=== PATIENT | female | born 1930 | race Caucasian/White ===

== ENCOUNTER 2016-06-15 07:57 | Inpatient (IN) | payer OTHER ==
[~2016-06-15] VITALS: Ht 157.4 cm; Wt 46.9 kg
--- NOTE | ~2016-06-15 | EKG ---
[place], [place] ELECTROCARDIOGRAM REPORT NAME: KRYS GODINEZ UNIT #: [id number] ROOM: 505 DOCTOR: JOSE E LOONEY MD BIRTHDATE: [birth year] DOS: 06/15/2016 TIME: 08:50. FINDINGS: 1. Sinus rhythm with normal axis and normal R wave progression. 2. Normal electrocardiogram. JOSE E LOONEY MD CM:EKGRPT:ELECTROCARDIOGRAM REPORT [id number] JOSE E LOONEY MD
--- NOTE | ~2016-06-15 | PR ---
[place], [place] PROGRESS NOTE NAME: KRYS GODINEZ UNIT #: [id number] ROOM: 505 DOCTOR: NEETA POWERS MD BIRTHDATE: [birth year] DOS: 06/19/2016 GASTROENDOSCOPIC REPORT HISTORY OF PRESENT ILLNESS: An 85-year-old patient who has presented with parotitis and under investigation right now. The patient has had some inflammatory response around the upper esophagus as well. However, this is going to be addressed as an outpatient in future. Her white blood cells today is 3.3, H and H of 10 and 31. Differential within normal limits. Flu negative A and B. Vancomycin trough has been 3.3, low level. She is getting multi antibiotic. Electrolytes were balanced. Liver function tests normal. Latest CBC: White blood cell has developed, dropped to 2.3 and platelet 100. PAST MEDICAL HISTORY: Reassessed. Past medical history per consultation report. REVIEW OF SYSTEMS: In general, HEENT: Denies double vision, blurred vision. RESPIRATORY: Denies acute shortness of breath. CARDIOVASCULAR: Denies chest pain. DIGESTIVE SYSTEM: Some dysphagia. PHYSICAL EXAMINATION: VITAL SIGNS: Stable. HEENT: Head normocephalic, nontraumatic. Mouth and buccal mucosa benign. Throat is free of thrush. I do not see any gross lymphadenopathy. I do not see any growth around the uvula. Parotid looks and appears to be soft on palpation. NECK: Supple, no thyromegaly, no cervical lymphadenopathy. CHEST: Symmetric anatomy, equal expansion. No wheeze, no rhonchi. HEART: Normal sinus rhythm. No gallop, no murmur. ABDOMEN: Soft. No hepato-organomegaly. Bowel sounds present. No pulsatile mass. EXTREMITIES: No cyanosis, no pedal edema. NEUROLOGIC: Alert and oriented to time, place and person. IMPRESSION: Parotitis, at the present and reactive inflammatory response around the cervical esophagus. PLAN AND DISCUSSION: Continuation with an antibiotic and follow up as outpatient. Thank you again. Sincerely yours, [place], [place] PROGRESS NOTE NAME: KRYS GODINEZ UNIT #: [id number] ROOM: 505 DOCTOR: NEETA POWERS MD BIRTHDATE: [birth year] NEETA POWERS MD CM:PNTRANS 142 2 NEETA POWERS MD 06/20/16402 interface
--- NOTE | ~2016-06-15 | CON ---
[place], [place] REPORT OF CONSULTATION NAME: KRYS GODINEZ UNIT #: [id number] ROOM: 505 DOCTOR: TASHI RESENDIZ MD BIRTHDATE: [birth year] DOS: 06/19/2016 ATTENDING PHYSICIAN: Sonya Hoang DO REASON FOR CONSULTATION: Right ear pain and right infraauricular swelling. HISTORY OF PRESENT ILLNESS: The patient is an 85-year-old female admitted to [facility] several days ago, the patient had symptoms of weakness and disequilibrium. She was admitted with a principal diagnosis of generalized weakness with dehydration and leukopenia. Symptoms are attributed to a viral illness. She did have right-sided ear pain and infraauricular swelling, prompting an ENT consultation. PAST MEDICAL HISTORY: Negative. PAST SURGICAL HISTORY: Total hip replacement. SOCIAL HISTORY: The patient denies use of alcohol, illicit drugs, or cigarette smoking. LABORATORY STUDIES: Shows leukopenia with a white blood cell count of 2.3, hemoglobin of 11.2. The patient did have some imaging of the soft tissues of the neck, which demonstrated no evidence of abscess in the right facial tissues. PHYSICAL EXAMINATION: HEENT: The ear shows the external canals clear. The TMs are intact. No evidence of otitis media. The patient has tenderness on palpation over the right parotid region. Left parotid clear. Oral cavity and oropharynx shows dry mucosa. NECK: Shows no adenopathy. IMPRESSION: Mild right parotitis secondary to dehydration. RECOMMENDATIONS: No need for surgical intervention. The CT demonstrates no evidence of abscess. The patient most likely has mild right-sided parotitis secondary to dehydration, which should respond to hydration and the IV antibiotics currently being administered to this patient. TASHI RESENDIZ MD CM:CONSTR:REPORT OF CONSULTATION 1250 06/19/16 1319 interface
[2016-06-15 08:08] VITALS: BP 152/62
[2016-06-15 08:44] LABS: BASO # 0.1 10*3/uL (0.0-0.1); BASO % 1.2 % (0.0-1.0); EOS % 0.7 % (1.0-4.0); HEMATOCRIT 34.8 % (37.0-47.0); LYMPH # 0.4 10*3/uL (1.3-4.4); LYMPH % 8.9 % (27.0-41.0); MEAN CELL VOLUME 92.1 fl (81.0-99.0); MEAN CORPUSCULAR HGB 31.7 pg (27.0-31.0); MEAN CORPUSCULAR HGB CONC 34.5 g/dl (33.0-37.0); MEAN PLATELET VOLUME 10.6 fl (9.6-12.3); MONO # 0.9 10*3/uL (0.1-1.0); NEUT # 2.9 10*3/uL (2.3-7.9); NEUT % 69.2 % (47.0-73.0); PLATELET COUNT AUTOMATED 128 10*3/uL (130-400); RED BLOOD COUNT 3.78 10*6/uL (4.10-5.10); RED CELL DISTRI WIDTH 12.8 % (0-14.5); WHITE BLOOD COUNT 4.3 10*3/uL (4.8-10.8)
[2016-06-15 09:01] LABS: BUN 10 mg/dl (7-24); CARBON DIOXIDE 27 mmol/L (21-32); CHLORIDE 100 mmol/L (98-107); EST GLOM FILT AFRICAN AMERICAN > 60 ml/min; GLUCOSE 101 mg/dL (65-99); POTASSIUM 3.8 mmol/L (3.5-5.1); SODIUM 136 mmol/L (136-145)
[2016-06-15 09:09] LABS: TROPONIN I < 0.015 ng/ml (<0.045)
[2016-06-15 10:03] LABS: BILIRUBIN NEGATIVE (NEGATIVE); BLOOD TRACE-LYSED (NEGATIVE); CLARITY CLEAR (CLEAR); COLOR YELLOW (YELLOW); GLUCOSE NEGATIVE (NEGATIVE); KETONE NEGATIVE (NEGATIVE); LEUKO ESTERASE NEGATIVE (NEGATIVE); NITRITE NEGATIVE (NEGATIVE); PH 7.5 (5.0-9.0); PROTEIN NEGATIVE (NEGATIVE); SPECIFIC GRAVITY <= 1.005 (1.005-1.030); UROBILINOGEN 0.2 E.U./dl (0.2-1.0)
[2016-06-15 10:13] LABS: BACTERIA TRACE; EPITHELIAL CELLS 0-2; URINE REFLEX COMMENT NO (NO); WBC 0-2 wbc/hpf (0-5)
[2016-06-15 11:55] VITALS: BP 170/66
[2016-06-15 16:00] VITALS: BP 153/68
[2016-06-15 20:00] VITALS: BP 148/52
[2016-06-16] VITALS: BP 139/80
[2016-06-16 06:28] LABS: BASO # 0.1 10*3/uL (0.0-0.1); BASO % 0.9 % (0.0-1.0); EOS % 0.2 % (1.0-4.0); HEMATOCRIT 38.8 % (37.0-47.0); HEMOGLOBIN 12.7 g/dl (12.0-16.0); LYMPH % 19.2 % (27.0-41.0); MEAN CELL VOLUME 94.4 fl (81.0-99.0); MEAN CORPUSCULAR HGB 30.9 pg (27.0-31.0); MEAN CORPUSCULAR HGB CONC 32.7 g/dl (33.0-37.0); MEAN PLATELET VOLUME 11.3 fl (9.6-12.3); MONO # 0.7 10*3/uL (0.1-1.0); MONO % 12.2 % (3.0-9.0); NEUT # 3.7 10*3/uL (2.3-7.9); NEUT % 67.1 % (47.0-73.0); PLATELET COUNT AUTOMATED 126 10*3/uL (130-400); RED BLOOD COUNT 4.11 10*6/uL (4.10-5.10); RED CELL DISTRI WIDTH 12.9 % (0-14.5); WHITE BLOOD COUNT 5.4 10*3/uL (4.8-10.8)
[2016-06-16 06:46] LABS: HEMOGLOBIN A1c 5.7 % (4.8-5.6)
[2016-06-16 06:58] LABS: PROTHROMBIN TIME 10.8 SECONDS (9.0-12.4)
[2016-06-16 07:00] LABS: ALBUMIN 3.4 gm/dl (3.1-4.5); ALKALINE PHOSPHATASE 79 U/L (45-117); BILIRUBIN, TOTAL 0.3 mg/dl (0.2-1.0); BUN 10 mg/dl (7-24); CARBON DIOXIDE 27 mmol/L (21-32); CHLORIDE 102 mmol/L (98-107); CHOLESTEROL 164 mg/dL (<200); EST GLOM FILT AFRICAN AMERICAN > 60 ml/min; GLUCOSE 89 mg/dL (65-99); HDL CHOLESTEROL 82 mg/dl (40-60); LDL CHOLESTEROL 74 mg/dL (9-159); MAGNESIUM 2.2 mg/dL (1.5-2.1); PHOSPHOROUS 3.3 mg/dL (2.5-4.9); POTASSIUM 3.7 mmol/L (3.5-5.1); SGOT/AST 31 IU/L (3-35); SGPT/ALT 20 U/L (12-78); SODIUM 138 mmol/L (136-145); TOTAL PROTEIN 7.2 gm/dL (6.4-8.2); TRIGLYCERIDES 41 mg/dl (<150); VLDL CHOLESTEROL 8 mg/dL (6-40)
[2016-06-16 07:36] LABS: FOLIC ACID 15.14 ng/mL (>5.38); VITAMIN D, 25-HYDROXY 30.3 ng/mL (30-100)
[2016-06-16 08:00] VITALS: BP 150/52
[2016-06-16 12:00] VITALS: BP 133/43
[2016-06-16 12:30] VITALS: BP 131/48
[2016-06-16 16:00] VITALS: BP 119/57
[2016-06-16 20:00] VITALS: BP 119/51
[2016-06-17] VITALS: BP 130/46
[2016-06-17 07:00] LABS: BASO % 0.5 % (0.0-1.0); EOS # 0.1 10*3/uL (0.0-0.4); EOS % 1.2 % (1.0-4.0); HEMATOCRIT 34.9 % (37.0-47.0); HEMOGLOBIN 11.2 g/dl (12.0-16.0); LYMPH # 1.1 10*3/uL (1.3-4.4); LYMPH % 26.2 % (27.0-41.0); MEAN CELL VOLUME 95.1 fl (81.0-99.0); MEAN CORPUSCULAR HGB 30.5 pg (27.0-31.0); MEAN CORPUSCULAR HGB CONC 32.1 g/dl (33.0-37.0); MEAN PLATELET VOLUME 11.2 fl (9.6-12.3); MONO # 0.4 10*3/uL (0.1-1.0); MONO % 10.5 % (3.0-9.0); NEUT # 2.5 10*3/uL (2.3-7.9); NEUT % 61.4 % (47.0-73.0); PLATELET COUNT AUTOMATED 101 10*3/uL (130-400); RED BLOOD COUNT 3.67 10*6/uL (4.10-5.10); RED CELL DISTRI WIDTH 13.1 % (0-14.5); WHITE BLOOD COUNT 4.1 10*3/uL (4.8-10.8)
[2016-06-17 07:34] LABS: BUN 10 mg/dl (7-24); CARBON DIOXIDE 29 mmol/L (21-32); CHLORIDE 105 mmol/L (98-107); EST GLOM FILT AFRICAN AMERICAN > 60 ml/min; GLUCOSE 84 mg/dL (65-99); POTASSIUM 3.4 mmol/L (3.5-5.1); SODIUM 139 mmol/L (136-145)
[2016-06-17 08:00] VITALS: BP 158/56
[2016-06-17 12:00] VITALS: BP 150/75; BP 158/56
[2016-06-17 15:46] VITALS: BP 159/59
[2016-06-17 20:00] VITALS: BP 140/62
[2016-06-18] VITALS: BP 158/76
[2016-06-18 08:11] VITALS: BP 170/72
[2016-06-18 12:17] VITALS: BP 163/57
[2016-06-18 12:33] LABS: BASO % 0.3 % (0.0-1.0); EOS % 1.2 % (1.0-4.0); HEMATOCRIT 31.7 % (37.0-47.0); HEMOGLOBIN 10.6 g/dl (12.0-16.0); LYMPH # 0.6 10*3/uL (1.3-4.4); LYMPH % 17.8 % (27.0-41.0); MEAN CELL VOLUME 93.2 fl (81.0-99.0); MEAN CORPUSCULAR HGB 31.2 pg (27.0-31.0); MEAN CORPUSCULAR HGB CONC 33.4 g/dl (33.0-37.0); MEAN PLATELET VOLUME 10.9 fl (9.6-12.3); MONO # 0.4 10*3/uL (0.1-1.0); MONO % 11.2 % (3.0-9.0); NEUT # 2.3 10*3/uL (2.3-7.9); NEUT % 69.2 % (47.0-73.0); PLATELET COUNT AUTOMATED 100 10*3/uL (130-400); WHITE BLOOD COUNT 3.3 10*3/uL (4.8-10.8)
[2016-06-18 12:55] LABS: BUN 6 mg/dl (7-24); CARBON DIOXIDE 27 mmol/L (21-32); CHLORIDE 103 mmol/L (98-107); EST GLOM FILT AFRICAN AMERICAN > 60 ml/min; GLUCOSE 93 mg/dL (65-99); POTASSIUM 3.5 mmol/L (3.5-5.1); SODIUM 138 mmol/L (136-145)
[2016-06-18 16:00] VITALS: BP 137/63
[2016-06-18 20:00] VITALS: BP 153/56
[2016-06-19] VITALS: BP 146/53
[2016-06-19 07:40] LABS: HEMATOCRIT 33.8 % (37.0-47.0); HEMOGLOBIN 11.2 g/dl (12.0-16.0); MEAN CELL VOLUME 93.9 fl (81.0-99.0); MEAN CORPUSCULAR HGB 31.1 pg (27.0-31.0); MEAN CORPUSCULAR HGB CONC 33.1 g/dl (33.0-37.0); MEAN PLATELET VOLUME 10.9 fl (9.6-12.3); PLATELET COUNT AUTOMATED 100 10*3/uL (130-400); RED CELL DISTRI WIDTH 13.1 % (0-14.5); WHITE BLOOD COUNT 2.3 10*3/uL (4.8-10.8)
[2016-06-19 07:57] LABS: ALBUMIN 2.7 gm/dl (3.1-4.5); ALKALINE PHOSPHATASE 58 U/L (45-117); BILIRUBIN, TOTAL 0.3 mg/dl (0.2-1.0); BUN 6 mg/dl (7-24); CARBON DIOXIDE 27 mmol/L (21-32); CHLORIDE 106 mmol/L (98-107); EST GLOM FILT AFRICAN AMERICAN > 60 ml/min; GLUCOSE 86 mg/dL (65-99); POTASSIUM 3.6 mmol/L (3.5-5.1); SGOT/AST 28 IU/L (3-35); SGPT/ALT 15 U/L (12-78); SODIUM 142 mmol/L (136-145); TOTAL PROTEIN 6.1 gm/dL (6.4-8.2)
[2016-06-19 08:00] VITALS: BP 156/64
[2016-06-19 08:07] LABS: BASOPHILS 1 % (0-1); EOSINOPHIL # 0.1 10*3/uL (0-0.4); EOSINOPHILS 6 % (1-4); LYMPHOCYTE # 1.1 10*3/uL (1.3-4.4); MONOCYTE # 0.4 10*3/uL (0.1-1.0); NEUTROPHIL # 0.7 10*3/uL (2.3-7.9); NEUTROPHILS 29 % (47-73); PLATELET SUFFICIENCY LOW (NORMAL); TOTAL CELLS COUNTED 100 #CELLS
[2016-06-19 12:00] VITALS: BP 157/58
[2016-06-19 16:00] VITALS: BP 104/80; BP 155/57
[2016-06-19 20:00] VITALS: BP 154/57
[2016-06-20] VITALS: BP 160/56
[2016-06-20 07:33] LABS: HEMATOCRIT 33.5 % (37.0-47.0); HEMOGLOBIN 11.2 g/dl (12.0-16.0); MEAN CELL VOLUME 93.1 fl (81.0-99.0); MEAN CORPUSCULAR HGB 31.1 pg (27.0-31.0); MEAN CORPUSCULAR HGB CONC 33.4 g/dl (33.0-37.0); PLATELET COUNT AUTOMATED 107 10*3/uL (130-400); RED CELL DISTRI WIDTH 12.7 % (0-14.5); WHITE BLOOD COUNT 2.6 10*3/uL (4.8-10.8)
[2016-06-20 08:00] VITALS: BP 172/58
[2016-06-20 08:01] LABS: ALBUMIN 2.5 gm/dl (3.1-4.5); ALKALINE PHOSPHATASE 61 U/L (45-117); BILIRUBIN, TOTAL 0.4 mg/dl (0.2-1.0); BUN 6 mg/dl (7-24); CARBON DIOXIDE 27 mmol/L (21-32); CHLORIDE 107 mmol/L (98-107); EST GLOM FILT AFRICAN AMERICAN > 60 ml/min; GLUCOSE 90 mg/dL (65-99); POTASSIUM 3.6 mmol/L (3.5-5.1); SGOT/AST 21 IU/L (3-35); SGPT/ALT 14 U/L (12-78); SODIUM 143 mmol/L (136-145); TOTAL PROTEIN 5.9 gm/dL (6.4-8.2)
[2016-06-20 08:30] LABS: BASOPHILS 1 % (0-1); EOSINOPHIL # 0.1 10*3/uL (0-0.4); EOSINOPHILS 4 % (1-4); MONOCYTE # 0.4 10*3/uL (0.1-1.0); NEUTROPHILS 40 % (47-73); TOTAL CELLS COUNTED 100 #CELLS
[2016-06-20 08:31] LABS: PLATELET SUFFICIENCY LOW (NORMAL)
[2016-06-20 12:00] VITALS: BP 157/57
[2016-06-20 16:00] VITALS: BP 160/63
[2016-06-20 20:00] VITALS: BP 132/61
[2016-06-21] VITALS: BP 183/65
[2016-06-21 06:28] LABS: HEMATOCRIT 33.1 % (37.0-47.0); HEMOGLOBIN 10.9 g/dl (12.0-16.0); MEAN CORPUSCULAR HGB CONC 32.9 g/dl (33.0-37.0); MEAN PLATELET VOLUME 10.3 fl (9.6-12.3); PLATELET COUNT AUTOMATED 129 10*3/uL (130-400); RED BLOOD COUNT 3.52 10*6/uL (4.10-5.10); RED CELL DISTRI WIDTH 12.9 % (0-14.5); WHITE BLOOD COUNT 2.1 10*3/uL (4.8-10.8)
[2016-06-21 06:58] LABS: EOSINOPHILS 2 % (1-4); LYMPHOCYTE # 1.1 10*3/uL (1.3-4.4); MONOCYTE # 0.3 10*3/uL (0.1-1.0); NEUTROPHIL # 0.6 10*3/uL (2.3-7.9); NEUTROPHILS 28 % (47-73); PLATELET SUFFICIENCY LOW (NORMAL); TOTAL CELLS COUNTED 100 #CELLS
[2016-06-21 07:06] LABS: ALBUMIN 2.5 gm/dl (3.1-4.5); ALKALINE PHOSPHATASE 57 U/L (45-117); BILIRUBIN, TOTAL 0.3 mg/dl (0.2-1.0); BUN 5 mg/dl (7-24); CARBON DIOXIDE 30 mmol/L (21-32); CHLORIDE 107 mmol/L (98-107); EST GLOM FILT AFRICAN AMERICAN > 60 ml/min; GLUCOSE 89 mg/dL (65-99); POTASSIUM 3.5 mmol/L (3.5-5.1); SGOT/AST 19 IU/L (3-35); SGPT/ALT 16 U/L (12-78); SODIUM 143 mmol/L (136-145); TOTAL PROTEIN 5.8 gm/dL (6.4-8.2)
[2016-06-21 08:00] VITALS: BP 160/56
[2016-06-21 12:00] VITALS: BP 164/78
[2016-06-21 16:00] VITALS: BP 160/57
[2016-06-21 20:00] VITALS: BP 110/76
[2016-06-22] VITALS: BP 171/81
[2016-06-22 01:35] VITALS: BP 200/100
[2016-06-22 04:00] VITALS: BP 146/68
[2016-06-22 06:19] LABS: HEMATOCRIT 33.7 % (37.0-47.0); HEMOGLOBIN 11.4 g/dl (12.0-16.0); MEAN CELL VOLUME 92.3 fl (81.0-99.0); MEAN CORPUSCULAR HGB 31.2 pg (27.0-31.0); MEAN CORPUSCULAR HGB CONC 33.8 g/dl (33.0-37.0); MEAN PLATELET VOLUME 10.2 fl (9.6-12.3); PLATELET COUNT AUTOMATED 166 10*3/uL (130-400); RED BLOOD COUNT 3.65 10*6/uL (4.10-5.10); RED CELL DISTRI WIDTH 12.8 % (0-14.5); WHITE BLOOD COUNT 3.5 10*3/uL (4.8-10.8)
[2016-06-22 07:08] LABS: EOSINOPHIL # 0.1 10*3/uL (0-0.4); EOSINOPHILS 4 % (1-4); MONOCYTE # 0.6 10*3/uL (0.1-1.0); NEUTROPHIL # 1.8 10*3/uL (2.3-7.9); NEUTROPHILS 52 % (47-73); TOTAL CELLS COUNTED 100 #CELLS
[2016-06-22 07:09] LABS: PLATELET SUFFICIENCY NORMAL (NORMAL)
[2016-06-22 08:00] VITALS: BP 150/50
[2016-06-22] MEDS ORDERED: PRINIVIL20 M1 PO (11:21)
[2016-06-22 12:00] VITALS: BP 147/54
== END 2016-06-22 14:45 | disposition home health service (06) | DRG 871 ==
LOC: ED 07:57 → 5E 10:50 → EDHOLD 10:50 → 5E 11:02
PROVIDERS: Emergency Medicine; Hospitalist; Internal Medicine; Student in an Organized Health Care Education/Training Program
DX: A41.9 Sepsis, unspecified organism (principal); E43 Unspecified severe protein-calorie malnutrition; E86.0 Dehydration; D61.818 Other pancytopenia; I34.1 Nonrheumatic mitral (valve) prolapse; Z68.1 Body mass index [BMI] 19.9 or less, adult; B34.9 Viral infection, unspecified; R27.0 Ataxia, unspecified; K11.20 Sialoadenitis, unspecified; Z96.649 Presence of unspecified artificial hip joint; R91.1 Solitary pulmonary nodule; K20.9 Esophagitis, unspecified; Z84.1 Family history of disorders of kidney and ureter; Z82.49 Family history of ischemic heart disease and other diseases of the circulatory system

== ENCOUNTER → 2018-01-18 | Outpatient (CLI) | payer OTHER, BC ==
[~2018-01-18] MED LIST: PRINIVIL20 M1 PO
== END | disposition home or self-care (01) ==
LOC: RAD 10:54
DX: M47.897 Other spondylosis, lumbosacral region (principal); Z91.81 History of falling

== ENCOUNTER 2018-12-26 19:00 | Emergency (ER) | payer OTHER, BC ==
[~2018-12-26] VITALS: Ht 154.9 cm; Wt 45.4 kg
[2018-12-26 19:48] LABS: BASO # 0.1 10*3/uL (0.0-0.1); BASO % 1.3 % (0.0-1.0); EOS # 0.1 10*3/uL (0.0-0.4); HEMATOCRIT 37.6 % (37.0-47.0); HEMOGLOBIN 12.3 g/dl (12.0-16.0); LYMPH # 1.2 10*3/uL (1.3-4.4); LYMPH % 21.2 % (27.0-41.0); MEAN CELL VOLUME 95.2 fl (81.0-99.0); MEAN CORPUSCULAR HGB 31.1 pg (27.0-31.0); MEAN CORPUSCULAR HGB CONC 32.7 g/dl (33.0-37.0); MEAN PLATELET VOLUME 10.8 fl (9.6-12.3); MONO # 0.7 10*3/uL (0.1-1.0); MONO % 12.7 % (3.0-9.0); NEUT # 3.5 10*3/uL (2.3-7.9); NEUT % 62.6 % (47.0-73.0); PLATELET COUNT AUTOMATED 177 10*3/uL (130-400); RED BLOOD COUNT 3.95 10*6/uL (4.10-5.10); RED CELL DISTRI WIDTH 12.5 % (0-14.5); WHITE BLOOD COUNT 5.5 10*3/uL (4.8-10.8)
[2018-12-26 20:03] LABS: ALBUMIN 3.4 gm/dl (3.1-4.5); ALKALINE PHOSPHATASE 101 U/L (45-117); BUN 14 mg/dl (7-24); CHLORIDE 105 mmol/L (98-107); CREATININE 0.86 mg/dL (0.55-1.02); POTASSIUM 4.2 mmol/L (3.5-5.1); SGOT/AST 22 IU/L (3-35); SGPT/ALT 20 U/L (12-78); SODIUM 136 mmol/L (136-145); TOTAL PROTEIN 7.3 gm/dL (6.4-8.2)
[2018-12-26] MEDS ORDERED: DOXYCYCLINE100 M3 PO (20:20)
[2018-12-26] MEDS ORDERED: VALTREX1000 MG PO (20:20)
== END 2018-12-26 20:30 | disposition home or self-care (01) ==
LOC: ED 19:00
PROVIDERS: Nurse Practitioner Family
DX: R21 Rash and other nonspecific skin eruption (principal); M25.511 Pain in right shoulder; R53.81 Other malaise